=== PATIENT | female | born 1980 | race Caucasian/White ===

== ENCOUNTER → 2017-06-12 22:14 | Observation (INO) ==
[2017-06-12 20:45] VITALS: BP 141/78
--- NOTE | 2017-06-12 21:16 | OB/GYN History & Physical ---
Date of Encounter: 06/12/17 Time of Encounter: 21:13 Assessment and Plan (1) contractions Current visit: Yes Status: Acute 37 yo F at 31 weeks +5 with presenting with contractions and cervical dilation /-3 Ordered [place] Magnesium sulfate 6gm then 2gm indocin 50mg Arrange for transfer to [facility] Pt amenable to transfer and verbalized understanding Discussed with Dr. Toth and accepted at [facility] by Raffaele Johnson MD [facility] fellow Discussed with SULLY Hough (2) 31 weeks gestation of Current visit: Yes Status: Acute Pt receives appropriate care with Dr. Shen (3) Previous delivery affecting , antepartum Current visit: Yes Status: Resolved (4) Gestational diabetes mellitus in childbirth, diet controlled Current visit: Yes Status: Resolved on insulin (5) Advanced maternal age in multigravida Current visit: Yes Status: Resolved Qualifiers: Trimester: third trimester Qualified Code(s): O09.523 - Supervision of elderly multigravida, third trimester History of Present Illness Chief complaint: Contractions HPI: Ms. Carreno is a 37 year old female at 31+ 5 days with gestational diabetes presenting for abdominal contractions that began at 6 PM . Her contractions increased in strength at 6:30 PM,. She noticed light blood discharge yesterday that resolved without intervention. The patient denies active vaginal bleeding and leakage of fluid. She endorses active movement. Pt denies headache, SOB, chest pain, nausea or vomiting. She follows with Dr. Shen at [place]. labs: A+/ HepB Nonreactive/ Varicella IgG Positive/Rubella Immune/ T. pallidum Negative/ HIV Nonreactive. Medication: Metformin, Insulin, Progesterone, Folic Acid, Vitamins Past Med Surg Social Fam HX - Past Medical History Medical history: diabetes Psychiatric history: no psych history - Past Surgical History Surgical History: - Social History Smoking Status: Never smoker Smokeless Tobacco Status: No Alcohol use: none Drug use: none - Family History Mother Living Status: Still Living Hx Family Cardiac Disorders: No Hx Family Respiratory Disorders: No Hx Family Cancer: No Hx Family GI Disorders: No Hx Family Genitourinary Disorders: No Hx Family Endocrine Disorder: Yes (diabetic) Hx Family Musculoskeletal Disorders: No Hx Family Neuromuscular Disorders: No Hx Family Neurologic Disorders: No Hx Family HEENT Disorders: No Hx Family Autoimmune Disorders: No Hx Family Reproductive Disorders: No Hx Family Psychosocial Disorders: No Obstetrical History - Pregnancies : 6 Para: 3 Term: 1 : 1 Ab's: 1 Livin Medications and Allergies OxyCODONE/APAP 5/325 [Percocet 5/325] 1 each PO Q4HR PRN #40 tablet 10/25/15 [Rx ] Ondansetron ODT [Zofran ODT] 4 mg SL Q6HR PRN #30 tab.rapdis 02/13/16 [Rx] Ibuprofen [Motrin] 800 mg PO Q6-8H PRN #30 tablet 04/01/16 [Rx] metFORMIN [Glucophage] 850 mg PO 04/01/16 [History] Cyclobenzaprine [Flexeril] 10 mg PO TID PRN #15 tablet 06/22/16 [Rx] Nabumetone [Relafen] 500 mg PO BID 10 Days 06/22/16 [Rx] Allergies No Known Allergies Allergy (Verified 10/22/15 08:30) Exam - Vital Signs Vital signs: Initial Vital Signs Temp Pulse Resp BP 98.0 F 83 16 141/78 06/12/17 20:34 06/12/17 20:34 06/12/17 20:34 06/12/17 20:34 - Constitutional Constitutional: well developed, well nourished - HEENT HEENT: EOMI, Normocephaly - Neck Neck exam: supple - Lungs Respiratory exam: CTAB - Cardiovascular Cardiovascular exam: RRR - Abdomen Abdomen: Present: bowel sounds normal, gravid, non tender - Cervix Dilation: 2 (performed by RN ) Effacement: 80 Station: -3 Results Result Diagrams: 06/12/17 21:10 All other labs normal. - VTE Reasons for not Prescribing Prophylaxis: Treatment not Indicated - Low risk for VTE
--- NOTE | 2017-06-12 21:21 | Event Note ---
Date of Encounter: 06/12/17 Time of Encounter: 21:17 Pt complains of contractions for the last 2.5 hours. History of , Vaginal exam /. Discussed with Dr. Toth, decision to transfer to [facility] for evaluation made. Call placed to [facility]. Dr. Raffaele Johnson returned call. Accepted pt. Also ordered Magnesium 6gm bolus followed by 2gm/hr, indocin 50mg po x1, and betamethasone Orders read back and verified.
[2017-06-12 21:29] LABS: Basophils % 0.3 %; Eosinophils # 0.1 K/mcL (0.0-0.6); Eosinophils % 1.2 %; Hematocrit 34.3 % (35.3-44.9); Hemoglobin 11.9 g/dL (11.5-15.4); Immature Granulocytes % 0.5 % (0-4); Lymphocytes # 2.6 K/mcL (0.6-4.6); Lymphocytes % 25.8 %; Mean Corpuscular HGB Conc 34.7 g/dL (31.6-35.5); Mean Corpuscular Hemoglobin 30.1 pg (28.0-33.3); Mean Corpuscular Volume 86.6 fL (83.0-100.0); Mean Platelet Volume 10.6 fL (9.4-12.4); Monocytes # 0.6 K/mcL (0.0-1.3); Monocytes % 5.9 %; Neutrophils # 6.5 K/mcL (1.6-8.9); Platelet Count 216 K/mcL (140-400); Red Blood Count 3.96 M/mcL (3.82-4.97); Red Cell Distribution Width 12.6 % (11.5-14.5); Segmented Neutrophils % 66.3 %
[~2017-06-12 22:14] MED LIST: Betamethasone Acet/SodPhos 6 MG/ML MDV IM SCH; Calcium Gluconate 1,000 MG/10 ML VIAL IVPB ONE; Indomethacin 25 MG CAPSULE PO ONE; Magnesium Sulfate 20 gm/500mL 20 GM/500 ML IV.SOLN IVC SCH; Ringers Solution, Lactated 1,000 ML ONE
== END | disposition short-term general hospital (02) ==
LOC: 1NENULAB
PROVIDERS: ADMIT Advanced Practice Midwife; ATTEND Advanced Practice Midwife

== ENCOUNTER → 2017-06-21 21:26 | Observation (INO) ==
[2017-06-21 20:51] LABS: Bilirubin,Urine Small (Negative); Blood,Urine Negative (Negative); Color,Urine Dark Yellow (Yellow); Glucose,Urine (UA) Normal (Normal); Ketones,Urine Negative (Negative); Leukocyte Esterase,Urine Negative (Negative); Nitrite,Urine Negative (Negative); Protein,Urine Trace mg/dL (Neg-Trace); Specific Gravity,Urine > 1.030 (1.010-1.025); Urobilinogen,Urine Normal (Normal)
[2017-06-21 20:52] LABS: Clarity,Urine Clear (Clear); Hyaline Casts,Urine None Seen per lpf (None-Few); RBC,Urine 0-3 per hpf (0-3); Squamous Epithelial Cell,Urine Many per lpf (None-Few)
[2017-06-21 21:05] LABS: Mucus,Urine Many (Few)
[2017-06-21 21:06] LABS: Bacteria,Urine Few per hpf (None-Few); WBC,Urine 0-3 per hpf (0-3)
--- NOTE | 2017-06-21 22:55 | OB/GYN Progress Note ---
Date of Encounter: 06/21/17 Time of Encounter: 22:54 (Triaged by RN) - Assessment and Plan (1) Threatened labor Current Visit: Yes Status: Acute Qualifiers: Trimester: third trimester Qualified Code(s): O47.03 - False labor before 37 completed weeks of gestation, third trimester Objective - Vital Signs Vital Signs: Intake and Output 06/21/17 06/21/17 06/21/17 07:59 15:59 23:59 Other: Weight 101.9 kg Patient Weight 06/21/17 23:59 Weight 101.9 kg - Labs Labs: Abnormal lab results Ur Specific [place] > 1.030 (1.010-1.025) H 06/21/17 20:15 Urine Bilirubin Small (Negative) H 06/21/17 20:15 Ur Squamous Epith Cells Many per lpf (None-Few) H 06/21/17 20:15 Urine Mucus Many (Few) H 06/21/17 20:15
== END | disposition home or self-care (01) ==
LOC: 1NENULAB

== ENCOUNTER 2017-06-26 19:19 | Inpatient (IN) ==
[2017-06-26 19:46] LABS: Basophils % 0.1 %; Eosinophils % 0.2 %; Hemoglobin 12.9 g/dL (11.5-15.4); Immature Granulocytes % 0.6 % (0-4); Lymphocytes % 5.3 %; Mean Corpuscular HGB Conc 34.9 g/dL (31.6-35.5); Mean Corpuscular Hemoglobin 30.5 pg (28.0-33.3); Mean Corpuscular Volume 87.5 fL (83.0-100.0); Mean Platelet Volume 10.9 fL (9.4-12.4); Monocytes # 0.9 K/mcL (0.0-1.3); Monocytes % 4.8 %; Nucleated Red Blood Cells 0.1 /100 WBC (0); Platelet Count 289 K/mcL (140-400); Red Blood Count 4.23 M/mcL (3.82-4.97); Red Cell Distribution Width 12.9 % (11.5-14.5)
--- NOTE | 2017-06-26 20:37 | OB/GYN Procedure Note ---
Delivery - Delivery Date: 06/26/17 Provider: Jessica Tobias Intrapartum events: precipitous labor- <3hr Delivery induction: none Delivery monitor: none Anesthesia: none Estimated Blood Loss: 100 (with placenta, del unknown) - (s) Infant A Delivery Date: 06/26/17 Infant Delivery Time: 18:45 Gender: Female Viability: Viable Pounds: 4 Ounces: 14 Weight Gram: 2210 kg Placenta: spontaneous - Repair Episiotomy: none Laceration Description: Periurethral, Superficial (hemostatic and not repaired per pt request) - Complications Delivery comments: Pt presented to L&D via ambulance with in arms. She reports she was at work when she started having regular contractions that quickly intensified and progressed to vaginal delivery. After arrival to L&D the placenta was delivered spontaneous and intact. Inspection revealed a superficial periurethral laceration that was hemostatic and not repaired per pt request. EBL after arrival to hospital was 100ml. Mother stable in delivery room. Infant taken to nursery due to prematurity. - Disposition Mom disposition: stable in LDR disposition: taken to nursery
--- NOTE | 2017-06-26 20:51 | OB/GYN History & Physical ---
Date of Encounter: 06/26/17 Time of Encounter: 20:40 Assessment and Plan (1) Precipitous delivery, delivered (current hospitalization) Current visit: Yes Status: Acute Pt s/p vaginal delivery on arrival. Placenta delivered. Doing well . (2) Modified White class B pregestational diabetes mellitus Current visit: Yes Status: Acute Pt on NPH insulin 26 units BID and Lispro insulin 16 units with every meal as well as metformin 500mg TID. Hospitalist consulted for ongoing DM management inpatient. 1/2 insulin ordered. Pt to follow-up with PCP for ongoing managment of type II DM . (3) Short interval between pregnancies affecting in third trimester, antepartum Current visit: Yes Status: Acute (4) History of loop electrical excision procedure (LEEP) Current visit: Yes Status: Acute (5) History of delivery Current visit: Yes Status: Acute Pt was on progesterone with this and she received steroid injections at 31 weeks gestation. (6) Obesity affecting in third trimester, antepartum Current visit: No Status: Chronic (7) Advanced maternal age in multigravida Current visit: No Status: Resolved testing WNL. Qualifiers: Trimester: third trimester Qualified Code(s): O09.523 - Supervision of elderly multigravida, third trimester (8) Previous delivery affecting , antepartum Current visit: No Status: Resolved Plan was for scheduled repeat delivery. (9) GBS screening not performed Current visit: Yes Status: Acute GBS status unknown. Peds aware. History of Present Illness Chief complaint: s/p vaginal delivery HPI: Ms. Carreno is a 37 year old female presenting at 33w5d s/p delivery. Pt states she was at work when she started having contractions and they rapidly got closer and stronger. She called her sister to pick her up at work and she [place] and then was brought to L&D by EMS with in her arms. The placenta was not delivered until after she arrived to L&D. This was complicated by AMA status, class B diabetes, previous deliveries x3, previous delivery at 32 weeks, and grand multiparity. Blood type A positive. Rubella immune. Serologies negative. GBS unknown. Past Med Surg Social Fam HX - Past Medical History Medical history: diabetes Psychiatric history: no psych history - Past Surgical History Surgical History: - Social History Smoking Status: Never smoker Smokeless Tobacco Status: No Alcohol use: none Drug use: none - Family History Mother History Unknown: Yes Adopted: No Family Member Ethnicity: Non- Living Status: Still Living Hx Family Cardiac Disorders: Yes (hypertension) Hx Family Respiratory Disorders: No Hx Family Cancer: No Hx Family GI Disorders: No Hx Family Endocrine Disorder: Yes (diabetes) Hx Family Neuromuscular Disorders: No Hx Family Neurologic Disorders: No Hx Family HEENT Disorders: No Hx Family Autoimmune Disorders: No Obstetrical History - Pregnancies : 6 Para: 4 Term: 3 : 1 Ab's: 1 Livin - History/Complications History/Complications: x3, delivery Medications and Allergies metFORMIN [Glucophage] 850 mg PO TID 04/01/16 [History] Tablet 1 tab PO DAILY 06/21/17 [History] Folic Acid 1 tab PO DAILY 06/26/17 [History] Insulin LISPRO 16 units SQ ACHS 06/26/17 [History] Insulin NPH 26 units SQ BID 06/26/17 [History] Allergies No Known Allergies Allergy (Verified 06/26/17 20:25) Review of System OB All systems PM: reviewed and no additional remarkable complaints except as stated Exam - Constitutional Constitutional: well developed, well nourished, mild distress - HEENT HEENT: Mucus Membranes Moist - Lungs Respiratory exam: CTAB - Cardiovascular Cardiovascular exam: RRR - Abdomen Abdomen: Present: non tender - Extremities Extremities exam: normal inspection - Vulva Vulva: bilateral: normal - Anus/Rectum Anus/Rectum: Present: normal perianal skin Results Result Diagrams: 06/26/17 19:28 Abnormal lab results WBC 19.1 K/mcL (4.3-11.1) H 06/26/17 19:28 Neutrophils # 17.0 K/mcL (1.6-8.9) H 06/26/17 19:28 Nucleated RBCs/100 WBC 0.1 /100 WBC (0) H 06/26/17 19:28 POC Glucose 139 (58-89) H 06/26/17 19:37 All other labs normal. - VTE Reasons for not Prescribing Prophylaxis: Treatment not Indicated - Low risk for VTE
[2017-06-26] MEDS ORDERED: *HR* Oxytocin 10 UNIT/ML VIAL IM ONE ×2 (21:51→22:08)
[2017-06-26] MEDS ORDERED: Insulin NPH 100 UNIT/ML (x5UNIT) SQ SCH (21:51)
[2017-06-26] MEDS ORDERED: Measles/Mumps/Rubella Vacc 0.5 ML VIAL SQ PRN (21:51)
[2017-06-26] MEDS ORDERED: Acetaminophen 325 MG TABLET PO PRN (21:51)
[2017-06-26] MEDS ORDERED: Ibuprofen 600 MG TABLET PO PRN (21:51)
[2017-06-26] MEDS ORDERED: Dextrose Gel 15 GM PO PRN ×2 (22:40)
[2017-06-26] MEDS ORDERED: *HR* Dextrose 50 % in Water (Syg) 50 ML SYRINGE IVP PRN (22:40)
[2017-06-26] MEDS ORDERED: D5% in Water 1,000 ML IVC PRN (22:40)
--- NOTE | 2017-06-26 22:47 | Internal Medicine Consult Note ---
Date of Encounter: 06/26/17 Time of Encounter: 22:47 - Assessment and Plan (1) Diabetes mellitus Current Visit: Yes Status: Acute Assessment and plan: 37-year-old female delivered a healthy baby girl today is consulted for her diabetes management. Before her recent she was on metformin. During her patient was started on insulin. Denies any hypoglycemic episodes. Plan: We will start patient on a diabetic diet, 10 units of Levemir at night and 5 units of aspart before meals. Before meals at bedtime We will also obtain a chemistry panel. Qualifiers: Diabetes mellitus type: type 2 Diabetes mellitus complication status: without complication Diabetes mellitus intermediate insulin use: with joint terminal attack controller use Qualified Code(s): E11.9 - Type 2 diabetes mellitus without complications ; Z79.4 - senior living (current) use of insulin Internal Medicine - CN: HPI - Data of Consult Patient: new to practice Consult date: 06/26/17 Requesting Physician: Omar Wolfe MD - Consult Narrative Reason for consult: Diabetes management History of present illness: Ms. Carreno is a 37 year old female presenting at 33w5d s/p delivery. Hospitalist team was consulted for diabetes management. Patient was diagnosed with diabetes mellitus before her . This is not gestational diabetes. Since 2014 and she has been on metformin. During this patient was transitioned to insulin. She denies any hypoglycemic episodes during . States her blood sugar has been well controlled during her . Inpatient she is being treated with long-acting insulin twice a day and preprandial insulin plus metformin. Past Med Surg Social Fam HX - Past Medical History Medical history: diabetes Psychiatric history: no psych history - Past Surgical History Surgical History: - Social History Smoking Status: Never smoker Smokeless Tobacco Status: No Alcohol use: none Drug use: none - Family History Mother History Unknown: Yes Adopted: No Family Member Ethnicity: Non- Living Status: Still Living Hx Family Cardiac Disorders: Yes (hypertension) Hx Family Respiratory Disorders: No Hx Family Cancer: No Hx Family GI Disorders: No Hx Family Endocrine Disorder: Yes (diabetes) Hx Family Neuromuscular Disorders: No Hx Family Neurologic Disorders: No Hx Family HEENT Disorders: No Hx Family Autoimmune Disorders: No Review of systems: Constitutional: Denies fever, chills HEENT: Denies headache, vision changes, neck pain, sore throat, rhinorrhea Heart: Denies chest pain palpitations Lungs: Denies shortness of breath cough Abdomen: Denies abdominal pain nausea vomiting diarrhea Back: Denies back pain Kidney: Denies dysuria, hematuria Extremities: Denies swelling, pain Neuro: Denies numbness, and tingling Internal Medicine - CN: Meds metFORMIN [Glucophage] 850 mg PO TID 04/01/16 [History] Tablet 1 tab PO DAILY 06/21/17 [History] Folic Acid 1 tab PO DAILY 06/26/17 [History] Insulin LISPRO 16 units SQ ACHS 06/26/17 [History] Insulin NPH 26 units SQ BID 06/26/17 [History] Allergies No Known Allergies Allergy (Verified 06/26/17 20:25) Internal Medicine - CN: Exam - Constitutional Vitals: Temp Pulse Resp BP Pulse Ox 98.3 F 97 16 133/77 98 06/26/17 21:55 06/26/17 21:55 06/26/17 21:55 06/26/17 21:55 06/26/17 21:55 - Other Additional findings: General: Alert and oriented to place time and situation. Without distress HEENT: Head atraumatic, normocephalic, EOMI, PERRLA, absent Lymphadenopathy, Moist Mucous Membranes, Heart: Regular rate and rhythm with no murmur Lungs: Clear to auscultation bilaterally Abdomen: Soft nontender, nondistended positive bowel sounds Extremities: Absent pedal edema, Neuro: Cranial nerves II through XII intact, sensation equal bilaterally, strength upper and lower extremity 5/5, alert oriented 3 Vascular: Pedal and radial pulses 2 out of 4 Internal Medicine - CN: Reslt - Labs CBC & Chem 7: 06/26/17 19:28 Labs: Short CBC 06/26/17 Range/Units 19:28 WBC 19.1 H (4.3-11.1) K/mcL Hgb 12.9 (11.5-15.4) g/dL Hct 37.0 (35.3-44.9) % Plt Count 289 (140-400) K/mcL Neutrophils # 17.0 H (1.6-8.9) K/mcL
--- NOTE | 2017-06-26 22:53 | Event Note ---
Date of Encounter: 06/26/17 Time of Encounter: 22:51 Patient and examined with biomedical electronics technician. Patient with history of diabetes mellitus type 2 has been on insulin just delivered. You are asked to manage patients diabetes. Because of expected decrease in insulin requirements will start the patient on Lantus 10 units and NovoLog 5 units before each meal in addition to sliding scale insulin. Check hemoglobin A-1 C. modify dose accordingly. White count is 19,000 likely reactive. Check urine analysis
[2017-06-26 22:58] LABS: Amphetamine Screen,Urine Negative ng/mL (Cutoff=1000); Barbiturate Screen,Urine Negative ng/mL (Cutoff=200); Benzodiazepines Screen,Urine Negative ng/mL (Cutoff=200); Cannabinoid Screen,Urine Negative ng/mL (Cutoff = 50); Cocaine Screen,Urine Negative ng/mL (Cutoff= 300); Opiate Screen,Urine Negative ng/mL (Cutoff=300); Phencyclidine Screen,Urine Negative ng/mL (Cutoff=25)
[2017-06-26] MEDS: Insulin LISPRO 300 UNITS/3 ML VIAL SQ SCH (23:34)
[2017-06-27 00:22] LABS: Bilirubin,Urine Negative (Negative); Blood,Urine Large (Negative); Clarity,Urine Cloudy (Clear); Glucose,Urine (UA) Normal (Normal); Ketones,Urine 80 mg/dL (Negative); Leukocyte Esterase,Urine Moderate (Negative); Nitrite,Urine Negative (Negative); Protein,Urine 30 mg/dL (Neg-Trace); Specific Gravity,Urine 1.017 (1.010-1.025); Urobilinogen,Urine Normal (Normal)
[2017-06-27 00:26] LABS: Color,Urine Red (Yellow)
[2017-06-27 06:49] LABS: BUN/Creatinine Ratio 15 (6-26); Blood Urea Nitrogen 10 mg/dL (7-20); Calcium 9.3 mg/dL (8.6-10.8); Carbon Dioxide 22 mEq/L (19-29); Chloride 106 mEq/L (98-109); Glucose 115 mg/dL (70-99); Osmolality,Calculated 284 (280-300); Sodium 137 mEq/L (136-145); eGFR For African Americans > 60 (> 60); eGFR For Non-African Americans > 60 (> 60)
[2017-06-27] MEDS ORDERED: Insulin LISPRO 300 UNITS/3 ML VIAL SQ SCH (07:30)
[2017-06-27] MEDS: Prenatal Vit/FA 1 EACH TABLET PO SCH (07:54)
[2017-06-27] MEDS: Insulin LISPRO 300 UNITS/3 ML VIAL SQ SCH ×7 (07:54→21:22)
[2017-06-27] MEDS ORDERED: *HR* Metformin 500 MG TABLET PO SCH (08:00)
[2017-06-27] MEDS ORDERED: Insulin NPH 100 UNIT/ML (x5UNIT) SQ SCH (09:00)
--- NOTE | 2017-06-27 09:31 | OB/GYN Progress Note ---
Date of Encounter: 06/27/17 Time of Encounter: 09:25 - Assessment and Plan (1) Status post normal vaginal delivery Current Visit: Yes Status: Acute s/p PTD @ 33+ weeks, PPD# 1, insulin dependent DM, sugars managed by Hospitalist, so far under control, cont fingerstick monitoring, cont current inpt care, ok for discharge from an OB standpoint, will await Hospitalist timeline for discharge Subjective - Subjective Patient reports: appetite normal, voiding normally, pain well controlled, ambulating normally : doing well Objective - Latest Vital Signs Latest vital signs: Vital Signs Temp Pulse Resp BP Pulse Ox 06/27/17 07:45 97.6 F 72 16 130/71 97 06/27/17 05:00 97.7 F 79 16 119/85 98 06/27/17 04:50 16 06/27/17 00:07 98.2 F 85 16 110/76 97 06/27/17 00:00 16 06/26/17 22:45 98.3 F 96 20 121/74 97 06/26/17 22:40 16 06/26/17 21:55 98.3 F 97 16 133/77 98 Intake and Output 06/26/17 06/27/17 06/27/17 23:59 07:59 15:59 Intake Total 200 / 200 Balance 200 / 200 Intake: Oral 200 / 200 Other: Weight 98.1 kg 98.1 kg Blood Glucose* 139 Patient Weight 06/27/17 23:59 Weight 98.1 kg - Exam Lungs: bilateral: normal Chest: Normal S1, Normal S2 Extremities: Present: normal Abdomen: Present: normal appearance Uterus: Present: normal - Labs Labs: Laboratory Results - last 24 hr 06/26/17 06/26/17 06/26/17 19:28 19:37 22:34 WBC 19.1 H RBC 4.23 Hgb 12.9 Hct 37.0 MCV 87.5 MCH 30.5 MCHC 34.9 RDW 12.9 Plt Count 289 MPV 10.9 Immature Gran % 0.6 Seg Neutrophils % 89.0 Lymphocytes % 5.3 Monocytes % 4.8 Eosinophils % 0.2 Basophils % 0.1 Neutrophils # 17.0 H Lymphocytes # 1.0 Monocytes # 0.9 Eosinophils # 0.0 Basophils # 0.0 Nucleated RBCs/100 WBC 0.1 H Sodium Potassium Chloride Carbon Dioxide BUN Creatinine Est GFR ( Amer) Est GFR (Non-Af Amer) BUN/Creatinine Ratio Glucose POC Glucose 139 H Calculated Osmolality Calcium Ur Specimen Adequacy Urine Color Urine Clarity Urine pH Ur Specific [place] Urine Protein Urine Glucose (UA) Urine Ketones Urine Blood Urine Nitrite Urine Bilirubin Urine Urobilinogen Ur Leukocyte Esterase Urine Opiates Screen Negative Ur Barbiturates Screen Negative Ur Phencyclidine Scrn Negative Ur Amphetamines Screen Negative U Benzodiazepines Scrn Negative Urine Cocaine Screen Negative U Marijuana (THC) Screen Negative 06/26/17 06/27/17 22:34 06:30 WBC RBC Hgb Hct MCV MCH MCHC RDW Plt Count MPV Immature Gran % Seg Neutrophils % Lymphocytes % Monocytes % Eosinophils % Basophils % Neutrophils # Lymphocytes # Monocytes # Eosinophils # Basophils # Nucleated RBCs/100 WBC Sodium 137 Potassium 4.0 Chloride 106 Carbon Dioxide 22 BUN 10 Creatinine 0.65 Est GFR ( Amer) > 60 Est GFR (Non-Af Amer) > 60 BUN/Creatinine Ratio 15 Glucose 115 H POC Glucose Calculated Osmolality 284 Calcium 9.3 Ur Specimen Adequacy Urine Color Red A Urine Clarity Cloudy A Urine pH 6.0 Ur Specific [place] 1.017 Urine Protein 30 H Urine Glucose (UA) Normal Urine Ketones 80 H Urine Blood Large H Urine Nitrite Negative Urine Bilirubin Negative Urine Urobilinogen Normal Ur Leukocyte Esterase Moderate H Urine Opiates Screen Ur Barbiturates Screen Ur Phencyclidine Scrn Ur Amphetamines Screen U Benzodiazepines Scrn Urine Cocaine Screen U Marijuana (THC) Screen
--- NOTE | 2017-06-27 11:45 | Internal Med Progress Note ---
Date of Encounter: 06/27/17 Time of Encounter: 11:00 - Assessment and plan (1) Diabetes mellitus Current Visit: Yes Status: Chronic Assessment and plan: Type 2 DM, insulin dependent with hyperglycemia Blood glucose well controlled HbA1c - 5.5 Continue usual home dose of Insulin and Metformin on discharge Follow diabetic diet, glucose checks at home before meals daily Follow up with PCP regularly for management of diabetes Thank you for the consult. Please call with any questions. We will sign off. Qualifiers: Diabetes mellitus type: type 2 Diabetes mellitus complication status: without complication Diabetes mellitus rodent exterminator insulin use: with rodent exterminator use Qualified Code(s): E11.9 - Type 2 diabetes mellitus without complications ; Z79.4 - nursing home (current) use of insulin - Time Spent With Patient less than 15 minutes - Subjective Interval history: Patient awake and alert. Not in any distress. Denies any complaints. Blood glucose is well controlled. HbA1c is 5.5. She is PPD #1, s/p normal vaginal delivery. No complications. Can be discharged home on her usual home dose of insulin and Metformin. She can follow up with her PCP for further mangement of diabetes. Thank you for the consult. Please call with any questions. We will sign off. - Constitutional Vitals: Temp Pulse Resp BP Pulse Ox 97.6 F 72 16 130/71 97 06/27/17 07:45 06/27/17 07:45 06/27/17 07:45 06/27/17 07:45 06/27/17 07:45 General appearance: Present: A&O X 3, pleasant, no acute distress, answers questions appropriately - Respiratory Respiratory exam: Present: CTAB. Absent: rales, rhonchi, wheezes - Cardiovascular Cardiovascular exam: Present: RRR, +S1, +S2 - GI/Abdominal GI/Abdominal exam: Present: soft. Absent: distended, firm, tenderness - Extremities Exam Extremities exam: Present: radial pulses palpable and symetrical. Absent: cyanotic, pedal edema - Neurological Exam Neurological exam: Present: alert, oriented X3, no focal deficits Internal Medicine: Result - Labs CBC & Chem 7: 06/26/17 19:28 06/27/17 06:30 Labs: Short CBC 06/26/17 Range/Units 19:28 WBC 19.1 H (4.3-11.1) K/mcL Hgb 12.9 (11.5-15.4) g/dL Hct 37.0 (35.3-44.9) % Plt Count 289 (140-400) K/mcL Neutrophils # 17.0 H (1.6-8.9) K/mcL BMP 06/27/17 06:30 Sodium 137 Potassium 4.0 Chloride 106 Carbon Dioxide 22 BUN 10 Creatinine 0.65 Glucose 115 H Calcium 9.3 Urine 06/26/17 Range/Units 22:34 Urine Color Red A (Yellow) Urine Clarity Cloudy A (Clear) Urine pH 6.0 (5.0-8.0) pH Units Ur Specific [place] 1.017 (1.010-1.025) Urine Protein 30 H (Neg-Trace) mg/dL Urine Glucose (UA) Normal (Normal) mg/dL - VTE Reasons for not Prescribing Prophylaxis: Treatment not Indicated - Low risk for VTE
[2017-06-27] MEDS ORDERED: Insulin DETEMIR 100 UNIT/ML X5UNITS SQ SCH ×2 (21:00)
--- NOTE | 2017-06-28 08:08 | Discharge Summary ---
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 Comments: insulin dose and diabetic management per hospitalist (3) Precipitous delivery, delivered (current hospitalization) Priority: Primary Status: Resolved (4) Status post normal vaginal delivery Priority: Secondary Status: Resolved - Discharge Medications Home Medications: metFORMIN [Glucophage] 850 mg PO TID 04/01/16 [History] Tablet 1 tab PO DAILY 06/21/17 [History] Folic Acid 1 tab PO DAILY 06/26/17 [History] Insulin LISPRO 16 units SQ ACHS 06/26/17 [History] Insulin NPH 26 units SQ BID 06/26/17 [History] Allergies/Adverse Reactions: Allergies No Known Allergies Allergy (Verified 06/26/17 20:25) Data Procedures and tests throughout hospitalization: Laboratory Tests 06/26/17 06/26/17 06/26/17 19:28 19:37 22:34 WBC 19.1 H RBC 4.23 Hgb 12.9 Hct 37.0 MCV 87.5 MCH 30.5 MCHC 34.9 RDW 12.9 Plt Count 289 MPV 10.9 Immature Gran % 0.6 Seg Neutrophils % 89.0 Lymphocytes % 5.3 Monocytes % 4.8 Eosinophils % 0.2 Basophils % 0.1 Neutrophils # 17.0 H Lymphocytes # 1.0 Monocytes # 0.9 Eosinophils # 0.0 Basophils # 0.0 Nucleated RBCs/100 WBC 0.1 H Sodium Potassium Chloride Carbon Dioxide BUN Creatinine Est GFR ( Amer) Est GFR (Non-Af Amer) BUN/Creatinine Ratio Glucose POC Glucose 139 H Calculated Osmolality Calcium Ur Specimen Adequacy Urine Color Urine Clarity Urine pH Ur Specific [place] Urine Protein Urine Glucose (UA) Urine Ketones Urine Blood Urine Nitrite Urine Bilirubin Urine Urobilinogen Ur Leukocyte Esterase Urine Opiates Screen Negative Ur Barbiturates Screen Negative Ur Phencyclidine Scrn Negative Ur Amphetamines Screen Negative U Benzodiazepines Scrn Negative Urine Cocaine Screen Negative U Marijuana (THC) Screen Negative 06/26/17 06/27/17 06/27/17 22:34 06:30 12:06 WBC RBC Hgb Hct MCV MCH MCHC RDW Plt Count MPV Immature Gran % Seg Neutrophils % Lymphocytes % Monocytes % Eosinophils % Basophils % Neutrophils # Lymphocytes # Monocytes # Eosinophils # Basophils # Nucleated RBCs/100 WBC Sodium 137 Potassium 4.0 Chloride 106 Carbon Dioxide 22 BUN 10 Creatinine 0.65 Est GFR ( Amer) > 60 Est GFR (Non-Af Amer) > 60 BUN/Creatinine Ratio 15 Glucose 115 H POC Glucose 104 H Calculated Osmolality 284 Calcium 9.3 Ur Specimen Adequacy Urine Color Red A Urine Clarity Cloudy A Urine pH 6.0 Ur Specific [place] 1.017 Urine Protein 30 H Urine Glucose (UA) Normal Urine Ketones 80 H Urine Blood Large H Urine Nitrite Negative Urine Bilirubin Negative Urine Urobilinogen Normal Ur Leukocyte Esterase Moderate H Urine Opiates Screen Ur Barbiturates Screen Ur Phencyclidine Scrn Ur Amphetamines Screen U Benzodiazepines Scrn Urine Cocaine Screen U Marijuana (THC) Screen 06/27/17 06/27/17 06/28/17 16:39 21:06 07:11 WBC RBC Hgb Hct MCV MCH MCHC RDW Plt Count MPV Immature Gran % Seg Neutrophils % Lymphocytes % Monocytes % Eosinophils % Basophils % Neutrophils # Lymphocytes # Monocytes # Eosinophils # Basophils # Nucleated RBCs/100 WBC Sodium Potassium Chloride Carbon Dioxide BUN Creatinine Est GFR ( Amer) Est GFR (Non-Af Amer) BUN/Creatinine Ratio Glucose POC Glucose 92 H 92 H 79 Calculated Osmolality Calcium Ur Specimen Adequacy Urine Color Urine Clarity Urine pH Ur Specific [place] Urine Protein Urine Glucose (UA) Urine Ketones Urine Blood Urine Nitrite Urine Bilirubin Urine Urobilinogen Ur Leukocyte Esterase Urine Opiates Screen Ur Barbiturates Screen Ur Phencyclidine Scrn Ur Amphetamines Screen U Benzodiazepines Scrn Urine Cocaine Screen U Marijuana (THC) Screen Labs on day of discharge: Labs from last 24 hours 06/28/17 06/27/17 06/27/17 07:11 21:06 16:39 POC Glucose 79 92 H 92 H 06/27/17 12:06 POC Glucose 104 H Date of admission: 06/26/17 19:19 Consults: 06/26/17 21:51 Consult to Hospitalist [CONS] Routine Consulting Provider: Hospitalist Lizzie Reason for Consult: diabetes managment Call Completed: Yes Consult to Keyboard Instrument Tuner [CONS] Routine Comment: Vaginal delivery, consult needed - Patient Status Disposition: Home, Self-Care Condition: Good Functional capacity at discharge: independent ambulation Overall status at discharge: patient is progressing back to baseline - Discharge Instructions - Diet and Activity Activity: as per physical therapy Diet: diabetic diet Hospital Course PERFORMANCE IMPROVEMENT COORDINATOR Time Attestation: Total time spent providing and/or coordinating discharge services: Exam - Constitutional Vitals: Temp Pulse Resp BP Pulse Ox 97.9 F 86 16 128/81 97 06/27/17 20:00 06/27/17 20:00 06/27/17 20:00 06/27/17 20:00 06/27/17 20:00 General appearance IM: A&O X 3 - Respiratory Respiratory exam: Present: CTAB - Cardiovascular Cardiovascular exam IM: Present: RRR - GI/Abdominal GI/Abdominal exam IM: normal bowel sounds - Uterus Position: 2 Fingers Above Umbilicus - Extremities Exam Extremities exam IM: Present: full ROM - Neurological Exam Neurological exam: CN II-XII intact - VTE Reasons for not Prescribing Prophylaxis: Treatment not Indicated - Low risk for VTE - Attending Attestation mila womack md [email or web address]
[2017-06-28 08:13] VITALS: BP 120/82
[2017-06-28] MEDS: Prenatal Vit/FA 1 EACH TABLET PO SCH (08:14)
[2017-06-28] MEDS: Insulin LISPRO 300 UNITS/3 ML VIAL SQ SCH ×2 (08:15)
== END 2017-06-28 11:12 | disposition home or self-care (01) | DRG 560 ==
LOC: 1NENULAB 19:19 → 1NENUOBS 21:50
PROVIDERS: ADMIT Obstetrics & Gynecology; ATTEND Obstetrics & Gynecology